=== PATIENT | female | born 1985 | race Two or more races ===

== ENCOUNTER 2023-12-15 19:11 | Emergency (ER) | payer MEDICAID, OTHER ==
[~2023-12-15] VITALS: Ht 157.5 cm; Wt 97.0 kg
[2023-12-15 21:22] VITALS: BP 154/90; PULSE 86; RESP 18; TEMP 98.3; O2SAT 99
[2023-12-15] MEDS ORDERED: ACET500T58 PO (22:30)
== END 2023-12-15 22:30 | disposition home or self-care (01) ==
LOC: ER 19:11
DX: S29.012A Strain of muscle and tendon of back wall of thorax, initial encounter (principal); S46.912A Strain of unspecified muscle, fascia and tendon at shoulder and upper arm level, left arm, initial encounter; R10.13 Epigastric pain; V43.52XA Car driver injured in collision with other type car in traffic accident, initial encounter; Y93.89 Activity, other specified; Y92.89 Other specified places as the place of occurrence of the external cause; Y99.8 Other external cause status